=== PATIENT | female | born 1930 | race Caucasian/White ===

== ENCOUNTER 2017-08-19 19:03 | Emergency (ER) | payer OTHER ==
[~2017-08-19 19:03] MED LIST: AMLO10TA2 PO; CORT1SOL RIGHT EAR; ENAL2.5T PO; MEDR4PAK PO; METO2.5T PO; ZANT150T2 PO
[2017-08-19 19:05] VITALS: BP 124/74; PULSE 62; RESP 18; TEMP 99; O2SAT 95
== END 2017-08-19 19:14 | disposition left against medical advice (07) ==
LOC: NED 19:03
DX: M79.606 Pain in leg, unspecified (principal)
CPT/HCPCS: 99281

== ENCOUNTER 2017-09-01 23:49 | Emergency (ER) | payer OTHER ==
[~2017-09-01] VITALS: Ht 165.1 cm; Wt 90.0 kg
[2017-09-02 00:03] VITALS: BP 123/69; PULSE 57; RESP 16; TEMP 97.6; O2SAT 97
--- NOTE | 2017-09-02 00:34 | PD ---
HPI Chief Complaint: Bleeding Time Seen by Provider: 00:32 Travel History International Travel<30 days: No Contact w/Intl Traveler<30days: No Traveled to known affect area: No History of Present Illness HPI 87-year-old female presents to the emergency department for complaint of bruising to the right upper extremity. Patient states that she's noticed increased bruising over the past couple days. Patient states she is very anxious as she was just recently diagnosed with an irregular heartbeat and her doctor put her on a blood thinning agent. Patient is very fearful that she is going to bleed severely. Patient does not recall a specific injury but was doing laundry prior to noticing the initial bruise to the right upper extremity. Patient states that she does not know she should take the medication as prescribed by her doctor. Patient did not contact her doctor to share this information with the provider. Patient states she otherwise feels well. Patient denies headache lightheadedness near syncope syncope shortness breath chest pain palpitations abdominal pain nausea vomiting and denies any other increased bruising epistaxis gingival bleeding hemoptysis hematemesis coffee-ground emesis melena hematochezia or hematuria. Patient rates pain as minimal. Patient just started Eliquis on Saturday. PFSH Past Medical History Narrative Medical Atrial fibrillation Hx Anticoagulant Therapy: Yes Arthritis: Yes Asthma: No Atrial Fibrillation: Yes Autoimmune Disease: No Blood Disorders: No Anxiety: No Depression: No Heart Rhythm Problems: Yes Cancer: No Cardiovascular Problems: Yes High Cholesterol: Yes Chemotherapy: No Chest Pain: No Congestive Heart Failure: No COPD: No Cerebrovascular Accident: No Diabetes: No Diminished Hearing: No Endocrine: No GERD: No Genitourinary: No Headaches: No Hiatal Hernia: No Hypertension: Yes Immune Disorder: No Kidney Stones: No Musculoskeletal: Yes Neurologic: No Psychiatric: No Reproductive: No Respiratory: No Immunizations Current: Yes Migraines: No Radiation Therapy: No Renal Failure: No Seizures: No Sickle Cell Disease: No Sleep Apnea: No Thyroid Disease: No Ulcer: No Tetanus Vaccination: > 5 Years Influenza Vaccination: No Menopausal: Yes Past Surgical History Abdominal Surgery: Yes (CHOLY) AICD: No Arteriovenous Shunt: No Cardiac Surgery: No Cholecystectomy: Yes Ear Surgery: No Endocrine Surgery: No Eye Surgery: No Genitourinary Surgery: No Gynecologic Surgery: No Insulin Pump: No Joint Replacement: No Oral Surgery: No Pacemaker: No Thoracic Surgery: No Other Surgery: Yes Social History Alcohol Use: No Tobacco Use: No Substance Use: No Allergies-Medications (Allergen,Severity, Reaction): Coded Allergies: cait (Unverified Allergy, Severe, Itching, 09/02/17) Reported Meds & Prescriptions Reported Meds & Active Scripts Active Cortisporin HC Otic Drops (Pktqbjmm-Ttjhztuis-DS Otic Drops) 3.5-10,000-1 Mg- Units-% Soln 4 Drop RIGHT EAR QID Zantac (Ranitidine HCl) 150 Mg Tab 150 Mg PO DAILY Medrol Dosepak (Methylprednisolone) 4 Mg Dspk 4 Mg PO DIRECTED Per Pharmacist direction Reported Metolazone 2.5 Mg Tab 2.5 Mg PO DAILY Enalapril (Enalapril Maleate) 2.5 Mg Tab 2.5 Mg PO DAILY Amlodipine (Amlodipine Besylate) 10 Mg Tab 10 Mg PO DAILY Narrative Medication Eliquis Review of Systems Except as stated in HPI: all other systems reviewed are Neg General / Constitutional: No: Fever, Chills HENT: No: Congestion, Nosebleed, Gingival Bleeding Cardiovascular: No: Chest Pain or Discomfort, Diaphoresis Respiratory: No: Shortness of Breath, Hemoptysis Gastrointestinal: No: Nausea, Vomiting, Hematemesis, Hematochezia Genitourinary: No: Dysuria, Hematuria Musculoskeletal: No: Myalgias, Arthralgias Skin: No Rash Neurologic: No: Weakness, Dizziness, Syncope, Focal Abnormalities, Coordination Problem Psychiatric: Positive: Anxiety Endocrine: No: Heat Intolerance, Cold Intolerance Hematologic/Lymphatic: Positive: Easy Bruising Physical Exam Narrative GENERAL: Well-developed well-nourished SKIN: Warm and dry. HEAD: Normocephalic. EYES: No scleral icterus. No injection or drainage. NECK: Supple, trachea midline. No JVD or lymphadenopathy. CARDIOVASCULAR: Regular rate and rhythm without murmurs, gallops, or rubs. RESPIRATORY: Breath sounds equal bilaterally. No accessory muscle use. GASTROINTESTINAL: Abdomen soft, non-tender, nondistended. MUSCULOSKELETAL: No cyanosis, or edema. Area of ecchymosis noted to the right upper arm nontender distally extremity is neurovascular tendon intact. Radial pulses 2+ to palpation capillary refill brisk and less than 2 seconds per digit BACK: Nontender without obvious deformity. No CVA tenderness. Data Data Last Documented VS Vital Signs Date Time Temp Pulse Resp B/P (MAP) Pulse Ox O2 Delivery O2 Flow Rate FiO2 09/02/17 00:14 Room Air 09/02/17 00:03 97.6 57 16 123/69 (87) 97 Orders Orders Ed Discharge Order (09/02/17 00:34) MDM Medical Decision Making Medical Screen Exam Complete: Yes Emergency Medical Condition: Yes Medical Record Reviewed: Yes Differential Diagnosis Coagulopathy contusion bleeding diathesis Narrative Course Patient recently started on Eliquis and bumped her right upper arm while doing laundry and nose a large bruise that has remained unchanged but patient became fearful and came to the emergency room to confirm that it was okay to have a bruise area no diagnostic studies are indicated patient is hemodynamically stable and bruise is stable Diagnosis Primary Impression: Arm bruise Qualified Codes: S40.021A - Contusion of right upper arm, initial encounter Referrals: Primary Care Physician 2 days Patient Instructions: General Instructions Additional Instructions: Use caution and use assistive device to help with ambulation at all times in view of new prescription blood thinner For bruising apply ice pack For any concerns return to the emergency department for reevaluation Follow-up with your primary care companion on Saturday call office to confirm appointment Return to the emergency department for any concerns or change in condition For discomfort or pain use Tylenol do not use aspirin or anti-inflammatories such as ibuprofen/Advil/Motrin/naproxen/Aleve Med/Other Pt SpecificInfo: No Change to Meds Disposition: 01 DISCHARGE HOME Condition: Stable Alda Gilliland MD Sep 02, 2017 00:34
== END 2017-09-02 00:41 | disposition home or self-care (01) ==
LOC: PHED 23:49
DX: S40.021A Contusion of right upper arm, initial encounter (principal); F41.9 Anxiety disorder, unspecified; I48.91 Unspecified atrial fibrillation; E78.00 Pure hypercholesterolemia, unspecified; I10 Essential (primary) hypertension; X58.XXXA Exposure to other specified factors, initial encounter; Z79.899 Other long term (current) drug therapy
CPT/HCPCS: 99282

== ENCOUNTER 2017-09-17 16:11 | Emergency (ER) | payer OTHER ==
[~2017-09-17] VITALS: Ht 165.1 cm; Wt 90.5 kg
[2017-09-17 16:11] VITALS: BP 151/75; PULSE 90; RESP 18; TEMP 98.2; O2SAT 96
[2017-09-17 16:23] VITALS: O2SAT 96
--- NOTE | 2017-09-17 16:25 | PD ---
HPI Chief Complaint: Anxiety Time Seen by Provider: 16:20 Travel History International Travel<30 days: No Contact w/Intl Traveler<30days: No Traveled to known affect area: No History of Present Illness HPI 87-year-old female with history of A. fib on Eliquis, here for evaluation of right leg numbness and difficulty swallowing her yogurt today. Patient reports that she was started on arrival was 2 weeks ago, however she decided to stop taking it 2 days ago because her daughter told her to stop because she was seeking pain management for lower back pain and believe that it would not be good to be on this medication and receive a lower back injection. She called her pain management physician today who told her that she should continue the Eliquis or she may have a stroke or get a blood clot. The patient seemed to have become nervous with this information. She complains of right leg numbness from the knee to the foot that started today as well as difficulty swallowing her yogurt this evening. She is also having a mild frontal headache described as pressure. No chest pain or dyspnea. No motor deficits. PFSH Past Medical History Hx Anticoagulant Therapy: Yes Arthritis: Yes Asthma: No Atrial Fibrillation: Yes Autoimmune Disease: No Blood Disorders: No Anxiety: No Depression: No Heart Rhythm Problems: Yes Cancer: No Cardiovascular Problems: Yes High Cholesterol: Yes Chemotherapy: No Chest Pain: No Congestive Heart Failure: No COPD: No Cerebrovascular Accident: No Diabetes: No Diminished Hearing: No Endocrine: No GERD: No Genitourinary: No Headaches: No Hiatal Hernia: No Hypertension: Yes Immune Disorder: No Kidney Stones: No Musculoskeletal: Yes Neurologic: No Psychiatric: No Reproductive: No Respiratory: No Immunizations Current: Yes Migraines: No Radiation Therapy: No Renal Failure: No Seizures: No Sickle Cell Disease: No Sleep Apnea: No Thyroid Disease: No Ulcer: No Menopausal: Yes Past Surgical History Abdominal Surgery: Yes (CHOLY) AICD: No Arteriovenous Shunt: No Cardiac Surgery: No Cholecystectomy: Yes Ear Surgery: No Endocrine Surgery: No Eye Surgery: No Genitourinary Surgery: No Gynecologic Surgery: No Insulin Pump: No Joint Replacement: No Oral Surgery: No Pacemaker: No Thoracic Surgery: No Other Surgery: Yes Social History Alcohol Use: No Tobacco Use: No Substance Use: No Allergies-Medications (Allergen,Severity, Reaction): Coded Allergies: cait (Unverified Allergy, Severe, Itching, 09/17/17) Reported Meds & Prescriptions Reported Meds & Active Scripts Active Reported Metoprolol Succinate ER 24 HR (Metoprolol Succinate) 50 Mg Tab 50 Mg PO HS Losartan (Losartan Potassium) 50 Mg Tab 50 Mg PO DAILY Diltiazem (Diltiazem HCl) 120 Mg Tab 240 Mg PO DAILY Eliquis (Apixaban) 5 Mg Tab 5 Mg PO DAILY Review of Systems Except as stated in HPI: all other systems reviewed are Neg Physical Exam Narrative GENERAL: Well-developed, well-nourished, comfortable, no apparent distress. SKIN: Focused skin assessment warm/dry. HEAD: Atraumatic. Normocephalic. EYES: Pupils equal and round. No scleral icterus. No injection or drainage. ENT: Mucous membranes pink and moist. No drooling or stridor. Tolerating secretions. Drinking clear liquids. NECK: Trachea midline. No JVD. CARDIOVASCULAR: Regular rate and rhythm. RESPIRATORY: No accessory muscle use. Clear to auscultation. Breath sounds equal bilaterally. GASTROINTESTINAL: Abdomen soft, non-tender, nondistended. MUSCULOSKELETAL: No obvious deformities. No clubbing. No cyanosis. No edema. Bilateral calves are supple without tenderness or edema. NEUROLOGICAL: Awake and alert. No obvious cranial nerve deficits. Motor grossly within normal limits. Normal speech. No focal deficits. Normal range of motion in all 4 extremities with normal strength in flexion and extension in all 4 extremities. No pronator drift. PSYCHIATRIC: Appropriate mood and affect; insight and judgment normal. Data Data Last Documented VS Vital Signs Date Time Temp Pulse Resp B/P (MAP) Pulse Ox O2 Delivery O2 Flow Rate FiO2 09/17/17 18:03 91 18 140/84 (102) 94 Room Air 09/17/17 16:11 98.2 Orders Orders Electrocardiogram (09/17/17 16:20) Ckmb (Isoenzyme) Profile (09/17/17 16:20) Complete Blood Count With Diff (09/17/17 16:20) Comprehensive Metabolic Panel (09/17/17 16:20) Magnesium (Mg) (09/17/17 16:20) Prothrombin Time / Inr (Pt) (09/17/17 16:20) Act Partial Throm Time (Ptt) (09/17/17 16:20) Troponin I (09/17/17 16:20) Chest, Single Ap (09/17/17 16:20) Ecg Monitoring (09/17/17 16:20) Iv Access Insert/Monitor (09/17/17 16:20) Oximetry (09/17/17 16:20) Sodium Chloride 0.9% Flush (Ns Flush) (09/17/17 16:30) CKMB (09/17/17 16:32) CKMB% (09/17/17 16:32) Labs Laboratory Tests Test 09/17/17 16:32 White Blood Count 11.6 TH/MM3 Red Blood Count 4.43 MIL/MM3 Hemoglobin 12.8 GM/DL Hematocrit 39.7 % Mean Corpuscular Volume 89.6 FL Mean Corpuscular Hemoglobin 28.8 PG Mean Corpuscular Hemoglobin Concent 32.1 % Red Cell Distribution Width 13.4 % Platelet Count 289 TH/MM3 Mean Platelet Volume 8.9 FL Neutrophils (%) (Auto) 73.1 % Lymphocytes (%) (Auto) 18.0 % Monocytes (%) (Auto) 7.2 % Eosinophils (%) (Auto) 0.4 % Basophils (%) (Auto) 1.3 % Neutrophils # (Auto) 8.5 TH/MM3 Lymphocytes # (Auto) 2.1 TH/MM3 Monocytes # (Auto) 0.8 TH/MM3 Eosinophils # (Auto) 0.0 TH/MM3 Basophils # (Auto) 0.2 TH/MM3 CBC Comment DIFF FINAL Differential Comment Prothrombin Time 11.4 SEC Prothromb Time International Ratio 1.1 RATIO Activated Partial Thromboplast Time 27.9 SEC Blood Urea Nitrogen 21 MG/DL Creatinine 0.75 MG/DL Random Glucose 109 MG/DL Total Protein 7.4 GM/DL Albumin 3.5 GM/DL Calcium Level 8.6 MG/DL Magnesium Level 2.0 MG/DL Alkaline Phosphatase 42 U/L Aspartate Amino Transf (AST/SGOT) 20 U/L Alanine Aminotransferase (ALT/SGPT) 30 U/L Total Bilirubin 0.4 MG/DL Sodium Level 135 MEQ/L Potassium Level 4.5 MEQ/L Chloride Level 100 MEQ/L Carbon Dioxide Level 26.4 MEQ/L Anion Gap 9 MEQ/L Estimat Glomerular Filtration Rate 73 ML/MIN Total Creatine Kinase 170 U/L Creatine Kinase MB 4.9 NG/ML Troponin I LESS THAN 0.02 NG/ML MDM Medical Decision Making Medical Screen Exam Complete: Yes Emergency Medical Condition: Yes Interpretation(s) EKG: A. fib, rate 84, normal axis, normal intervals, nonspecific T-wave abnormality, no ST segment abnormality. Differential Diagnosis Panic attack/anxiety, metabolic abnormality, intracranial abnormality, esophageal impaction less likely Narrative Course Vital signs show heart rate 85, blood pressure 112/59, pulse ox 95% on room air , oral temp of 98.2F. CBC: WBC 11.6, hemoglobin 12.8, hematocrit 39.7, platelets 289. CMP is essentially unremarkable. Cardiac enzymes are negative. Chest x-ray: CONCLUSION: 1. Mild apparent scarring at the lung bases. 2. No acute cardiopulmonary disease. The patient refused CT head. The patient was made aware of all findings. She is resting comfortably. Again she had no chest pain. She is tolerating clear liquids without difficulty, without choking. There are no focal neurologic deficits. Bilateral calves are supple, nontender, no edema. Patient's symptoms seem to be more related to anxiety after being told that she should not have stopped her Eliquis 2 days ago. The patient agrees with this. At this point I believe she is stable for discharge home with outpatient follow-up with her primary care physician this week. I advised that she resume taking her Eliquis. She was informed on when to return to the emergency department. She verbalizes understanding and agreement with plan. Diagnosis Primary Impression: Paresthesias Additional Impression: Anxiety Referrals: Primary Care Physician 3 days Additional Instructions: Follow-up with your primary care physician this week. Return to the emergency department for worsening symptoms or any other concerns. Disposition: 01 DISCHARGE HOME Condition: Stable Vasquez Thornton MD Sep 17, 2017 16:24
[2017-09-17] MEDS ORDERED: SODIUM CHLORIDE 0.9% FLUSH 10 ML FLUSH IVF PRN (16:30)
[2017-09-17 16:37] LABS: AUTOMATED NEUTROPHIL # 8.5 TH/MM3 (1.8-7.7); BASOPHIL # 0.2 TH/MM3 (0-0.2); BASOPHIL % 1.3 % (0.0-2.0); EOSINOPHIL % 0.4 % (0.0-4.0); HEMATOCRIT 39.7 % (35.0-46.0); HEMOGLOBIN 12.8 GM/DL (11.6-15.3); LYMPHOCYTE # 2.1 TH/MM3 (1.0-4.8); MEAN CELL VOLUME 89.6 FL (80.0-100.0); MEAN CORPUSCULAR HEMOGLOBIN 28.8 PG (27.0-34.0); MEAN CORPUSCULAR HGB CONC 32.1 % (32.0-36.0); MEAN PLATELET VOLUME 8.9 FL (7.0-11.0); MONO % 7.2 % (0.0-8.0); MONOCYTE # 0.8 TH/MM3 (0-0.9); NEUT % 73.1 % (16.0-70.0); PLATELET COUNT 289 TH/MM3 (150-450); RED BLOOD COUNT 4.43 MIL/MM3 (4.00-5.30); RED CELL DISTRIBUTION WIDTH 13.4 % (11.6-17.2); WHITE BLOOD COUNT 11.6 TH/MM3 (4.0-11.0)
[2017-09-17] MEDS ORDERED: APIX5TAB PO (16:44)
[2017-09-17] MEDS ORDERED: METO1TAB9 PO (16:44)
[2017-09-17] MEDS ORDERED: LOSA50TA PO (16:44)
[2017-09-17] MEDS ORDERED: DILT120T PO (16:44)
[2017-09-17 17:00] LABS: CHLORIDE 100 MEQ/L (98-107); SODIUM (NA) 135 MEQ/L (136-145)
[2017-09-17 17:04] LABS: CALCIUM 8.6 MG/DL (8.5-10.1); INTERNATIONAL NORMALIZED RATIO 1.1 RATIO; PROTHROMBIN TIME - PATIENT 11.4 SEC (9.8-11.6)
[2017-09-17 17:05] LABS: ALBUMIN 3.5 GM/DL (3.4-5.0); BICARBONATE 26.4 MEQ/L (21.0-32.0); BLOOD UREA NITROGEN 21 MG/DL (7-18); GLUCOSE,RANDOM 109 MG/DL (74-106)
[2017-09-17 17:08] LABS: ALT (GPT) 30 U/L (10-53); AST (GOT) 20 U/L (15-37); CREATININE 0.75 MG/DL (0.50-1.00); GLOMERULAR FILTRATION RATE 73 ML/MIN (>89)
[2017-09-17 17:10] LABS: TOTAL BILIRUBIN ADULT 0.4 MG/DL (0.2-1.0); TOTAL PROTEIN 7.4 GM/DL (6.4-8.2)
[2017-09-17 17:11] LABS: ALKALINE PHOSPHATASE 42 U/L (45-117)
[2017-09-17 17:13] LABS: TROPONIN I LESS THAN 0.02 NG/ML (0.02-0.05)
[2017-09-17 17:19] VITALS: BP 112/59; PULSE 85; RESP 18; O2SAT 95
--- NOTE | 2017-09-17 17:27 | RADRPT ---
EXAM DATE/TIME: 09/17/2017 16:54 [facility] COMPARISON: CHEST SINGLE AP, March 23, 2015, 19:53. INDICATIONS : Chest pain today. MEDICAL HISTORY : Hypertension. Hypercholesterolemia. Atrial fibrillation. Arthritis. SURGICAL HISTORY : Cholecystectomy. ENCOUNTER: Initial ACUITY: 1 day PAIN SCORE: 4/10 LOCATION: Bilateral chest FINDINGS: A single AP erect portable view of the chest was obtained. This demonstrates that the heart size at t he upper limits of normal. No confluent infiltrates or effusions are identified. There is mild appare nt scarring at the lung bases. There is no perihilar edema. There are mild degenerative changes invol ving the thoracic spine. Bony thorax is otherwise intact. CONCLUSION: 1. Mild apparent scarring at the lung bases. 2. No acute cardiopulmonary disease. Austen Goldsmith MD on September 17, 2017 at 17:24 Board Certified Radiologist. This report was verified electronically.
[2017-09-17 18:03] VITALS: BP 140/84; PULSE 91; RESP 18; O2SAT 94
--- NOTE | 2017-09-18 22:02 | EKG ---
Date Performed: 09/17/2017 Time Performed: 16:28:35 PTAGE: 87 years EKG: ATRIAL FIBRILLATION NONSPECIFIC ST & T-WAVE ABNORMALITY ABNORMAL RHYTHM ECG PREVIOUS TRACING : 03/23/2015 18.31 Compared to the previous tracing SR no longer present DOCTOR: Chapin Corbett Interpretating Date/Time 09/18/2017 22:01:59
== END 2017-09-17 18:24 | disposition home or self-care (01) ==
LOC: PHED 16:11
DX: R20.2 Paresthesia of skin (principal); F41.9 Anxiety disorder, unspecified; R51 Headache; R94.31 Abnormal electrocardiogram [ECG] [EKG]; M54.5 Low back pain; I10 Essential (primary) hypertension; M19.90 Unspecified osteoarthritis, unspecified site; I48.91 Unspecified atrial fibrillation; E78.00 Pure hypercholesterolemia, unspecified; Z79.01 Long term (current) use of anticoagulants
CPT/HCPCS: 71045; 80053; 82550; 82552; 83735; 84484; 85025; 85610; 85730; 93005